=== PATIENT | female | born 1970 | race Caucasian/White ===

== ENCOUNTER 2019-03-03 10:04 | Day surgery (SDC) | payer OTHER ==
[~2019-03-03] VITALS: Ht 160 cm; Wt 56.2 kg
[2019-03-03] MEDS ORDERED: fentaNYL 0.05 MG/ML VIAL ONE (12:50)
[2019-03-03] MEDS ORDERED: MIDAZOLAM 2 MG/2 ML VIAL ONE (12:50)
[2019-03-03] MEDS ORDERED: MIDAZOLAM 2 MG/2 ML VIAL IVP ONE (13:20)
== END 2019-03-03 13:41 | disposition home or self-care (01) ==
LOC: MOR 10:04 → MTU 10:06 → MOR 13:41
PROVIDERS: ATTEND Internal Medicine Gastroenterology
DX: K31.89 Other diseases of stomach and duodenum (principal); R11.0 Nausea; Z90.710 Acquired absence of both cervix and uterus; Z88.0 Allergy status to penicillin; Z88.5 Allergy status to narcotic agent; Z79.899 Other long term (current) drug therapy; Z80.0 Family history of malignant neoplasm of digestive organs
CPT/HCPCS: 36415; 43239; 86677; J2250; J3010